=== PATIENT | female | born 1965 | race Caucasian/White ===

== ENCOUNTER 2017-10-09 06:52 | Day surgery (SDC) | payer BC ==
[2017-10-08 17:05] VITALS: BMI 33.6
[2017-10-09] MEDS ORDERED: CEFAZOLIN/Water 2 GM/20 ML SYRINGE ONE (07:41)
[2017-10-09] MEDS ORDERED: Ketorolac Tromethamine 30 MG/ML VIAL ONE (07:41)
[2017-10-09] MEDS ORDERED: Midazolam HCl 2 mg/2 ml Vial ONE (08:49)
[2017-10-09] MEDS ORDERED: Bupivacaine HCl 0.25%/Epi 0.0005/PF 10 ML VIAL FS ONE ×2 (09:10)
[2017-10-09] MEDS ORDERED: Famotidine/PF 20 mg/2ml Vial ONE (09:12)
[2017-10-09] MEDS ORDERED: Fentanyl 100 MCG/2 ML VIAL ONE (09:12)
[2017-10-09] MEDS ORDERED: Albuterol Sulfate HFA (OR ONLY) ONE (09:16)
[2017-10-09] MEDS ORDERED: SUGAMMADEX SODIUM 200 MG/2 ML VIAL ONE (09:16)
--- NOTE | 2017-10-09 10:47 | PDOC.OP ---
Operative Note - Operative Note Operative Note: PROCEDURE: Laparoscopic cholecystectomy SURGEON: Chasity Hdez M.D. DATE OF PROCEDURE: 10/09/2017 PREOPERATIVE DIAGNOSIS: Cholelithiasis and cholecystitis POSTOPERATIVE DIAGNOSIS: Cholelithiasis and cholecystitis HISTORY: Patient with constant right upper quadrant pain since last Friday with intermittent exacerbations of epigastric pain. Gallbladder ultrasound showed a large stone with sludge in the gallbladder. Preoperative LFTs were normal and bile duct was normal caliber. FINDINGS: Very distended gallbladder with a large stone in the neck which was able to be pushed up into the gallbladder. No significant adhesions. PROCEDURE IN DETAIL: After informed consent was obtained and appropriate preoperative antibiotics were administered, the patient was taken to the operating room and placed in the supine position and general endotracheal anesthesia was administered. The stomach was decompressed with an OG tube and the abdomen was prepped and draped in standard sterile fashion. Local anesthesia was infused to the skin and subcutaneous tissues at the umbilical level. A transverse skin incision was made. The fascia was elevated and a Veress needle was placed into the abdominal cavity without difficulty. Opening pressure was less than 5 and carbon dioxide gas easily insufflated to an intra- abdominal pressure of 15, which the patient tolerated well. The Veress needle was withdrawn and a [place] port advanced under direct vision. The abdominal cavity was carefully examined. There was no evidence of Veress needle or of trocar injury. Local anesthesia was infused to the skin and subcutaneous tissues at the epigastric, right upper quadrant, and right lateral abdominal sites and trocars were placed under direct vision of the laparoscope. The gallbladder was very distended and initially was felt that it would need to be aspirated in order to be grasped but eventually the fundus of the gallbladder was able to be grasped and retracted superiorly. The infundibulum was grasped and retracted laterally, displacing a large stone in the neck of the gallbladder superiorly into the gallbladder. The serosa was stripped inferiorly at the level of the neck of the gallbladder exposing the cystic duct and artery which were traced clearly to their insertion in the gallbladder. An enlarged lymph node was incidentally noted. Critical view of safety was obtained and the cystic duct and artery were clipped and divided between clips. The gallbladder was then dissected free of the gallbladder bed using hook electrocautery. Prior to complete removal of the gallbladder from the gallbladder bed, the area of the cystic duct and artery stumps was examined. The clips were in good position completely across these structures and there was no bleeding and no leakage of bile. The gallbladder was then placed into an EndoCatch bag and drawn out through the epigastric incision. The epigastric trocar was replaced and the operative site easily irrigated to clear. There was no significant bleeding or spillage of bile. The epigastric trocar was removed and the fascia closed under direct laparoscopic vision with a 0 Vicryl suture on a GraNee needle in a [id number] manner with excellent technical result. The right upper quadrant and right lateral abdominal trocars were removed and hemostasis verified. Carbon dioxide gas was allowed to desufflate through the umbilical trocar which was then removed. The skin incisions were closed with 4- 0 subcuticular Monocryl sutures and Dermabond dressings were placed. The patient was extubated and taken to the recovery room in good condition. There were no complications. ESTIMATED BLOOD LOSS: Minimal. SPECIMEN : Gallbladder and contents.
[2017-10-09] MEDS ORDERED: Promethazine HCl 25 MG/ML VIAL ONE (10:48)
[2017-10-09] MEDS ORDERED: Morphine 4 MG/ML VIAL ONE (11:38)
[2017-10-09] MEDS ORDERED: HYDROcodone/Acetaminophen 5/325 mg Tablet ONE (12:28)
[2017-10-09] MEDS ORDERED: ePHEDrine/0.9% NaCl/PF SYRINGE 50 mg/10 ml ONE (14:19)
[2017-10-09] MEDS ORDERED: Dexamethasone 20 MG/5 ML VIAL ONE (14:19)
[2017-10-09] MEDS ORDERED: Ondansetron HCl/PF 4 MG/2 ML Vial ONE (14:19)
[2017-10-09] MEDS ORDERED: PROPOFOL 200 MG/20 ML VIAL ONE (14:19)
[2017-10-09] MEDS ORDERED: Lidocaine 1% PF 5 ML VIAL ONE (14:19)
[2017-10-09] MEDS ORDERED: Glycopyrrolate 0.2 MG/ML 5 ML SYRINGE ONE ×2 (14:19)
== END 2017-10-09 12:53 | disposition home or self-care (01) ==
LOC: SDC 06:52
PROVIDERS: ATTEND Surgery
PROC: 0FT44ZZ Resection of Gallbladder, Percutaneous Endoscopic Approach (ICD-10-PCS; principal; 2017-10-09)
DX: K80.10 Calculus of gallbladder with chronic cholecystitis without obstruction (principal); F41.9 Anxiety disorder, unspecified; K21.9 Gastro-esophageal reflux disease without esophagitis; L40.0 Psoriasis vulgaris; Z79.2 Long term (current) use of antibiotics; Z79.899 Other long term (current) drug therapy
CPT/HCPCS: 88304; 96374; 96375; J0131; J1100; J1885; J2001; J2250; J2270; J2405; J2550; J2704; J3010; S0028

== ENCOUNTER 2018-04-27 13:38 | Outpatient (CLI) | payer BC ==
--- NOTE | 2018-04-27 15:21 | RAD ---
RIGHT SHOULDER THREE VIEWS: INDICATIONS: Right shoulder pain. COMPARISON: None. FINDINGS: There is a large focus of calcification seen within the soft tissues overlying the right humeral head , consistent with calcific tendinosis. This measures 3.4 x 3.1 cm in its greatest mediolateral and A P dimensions, respectively. The visualized right lung is clear. 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 POS: [facility]
== END 2018-04-27 13:39 | disposition home or self-care (01) ==
LOC: BICRAD 13:38
PROVIDERS: ATTEND Internal Medicine Rheumatology
DX: M75.101 Unspecified rotator cuff tear or rupture of right shoulder, not specified as traumatic (principal); M75.31 Calcific tendinitis of right shoulder

== ENCOUNTER 2018-06-01 07:42 | Outpatient (CLI) | payer BC ==
--- NOTE | 2018-06-01 10:12 | MRI ---
MRI RIGHT SHOULDER WITHOUT CONTRAST: Date: 06/01/18 HISTORY: M25.511 shoulder pain. M75.101 rotator cuff tear of right shoulder. COMPARISON: Shoulder radiograph dated 04/27/18. FINDINGS: Biceps tendon: Intact. Labrum: Mild free edge fraying superior labrum. Rotator Cuff: There is a 50% thickness bursal surface tear of the supraspinatus tendon from the footprint. Infraspi natus tendon is intact. Subscapularis is intact. There is a large volume calcific tendinosis of the supraspinatus tendon torn fibers measuring 1.7 cm AP x approximately 4.0 cm in transverse dimension. There is associated edema within the supraspinatus muscle. There is also partial tearing of the myotendinous junction of the posterior one-half fibers, of which these fibers are retracted to the level of the spinoglenoid notch. This is an internal type delamination tear. No significant atrophy of the supraspinatus muscle. The infraspinatus and subscapularis and teres min or muscles are without atrophy. The deltoid is without significant atrophy. Moderate subacromial/subdeltoid effusion. Type III acromion with some mass effect upon the myotendino us junction of the supraspinatus. IMPRESSION: 1. 50% thickness bursal surface tear of the entire supraspinatus tendon from the footprint. 2. There is a myotendinous junction internal delamination type tear of the posterior 30% fibers of t he supraspinatus tendon retracted to the level of the supraglenoid notch. At the torn fibers extendin g from the footprint for a length of 4.0 cm is a large volume calcific tendinosis. 3. Type III acromion with narrowing of the subacromial space and moderate subacromial subdeltoid effu becca. POS: [facility]
== END 2018-06-01 07:43 | disposition home or self-care (01) ==
LOC: MRI 07:42
PROVIDERS: ATTEND Internal Medicine Rheumatology
DX: M75.101 Unspecified rotator cuff tear or rupture of right shoulder, not specified as traumatic (principal); M25.511 Pain in right shoulder; M25.411 Effusion, right shoulder; M25.811 Other specified joint disorders, right shoulder

== ENCOUNTER 2021-12-29 18:15 | Inpatient (IN) | payer OTHER ==
[~2021-12-29 18:15] MED LIST: Iopamidol-370 76% 500 ML 1 ML ONE
[2021-12-29] MEDS ORDERED: CEFAZOLIN 1 GM VIAL ONE (18:25)
[2021-12-29] MEDS ORDERED: Boostrix 0.5 ML (Tdap) VIAL (>/=7 yrs of age) ONE (18:25)
[2021-12-29 18:30] LABS: Hemoglobin 13.2 g/dL (12.0-16.0); Mean Corpuscular HGB CONC 31.4 g/dL (32.0-36.0); Mean Corpuscular Hemoglobin 32.5 pg (27.0-31.0); Mean Platelet Volume 6.8 fL (7.4-10.4); Platelet Count 271 thou/uL (130-400); RBC Distribution Width 12.6 % (11.5-14.5); Red Blood Cell (RBC) Count 4.06 mill/uL (4.20-5.40); White Blood Cell (WBC) Count 28.6 thou/uL (4.8-10.8)
[2021-12-29 18:39] LABS: BHCG - Serum Negative (NEGATIVE); Pregs Control Background? CLEAR/WHITE (CLR/WHITE); Pregs Control Bar Appear? YES (CONTROL BAR)
[2021-12-29 18:44] LABS: Band 23 % (5-11); Lymphocytes 13 % (21-51); MDiff Complete? YES; Macrocytosis SLIGHT = 6-15 cells (100X) (0-5/hpf); Monocytes 3 % (0-10); Neutrophil 61 % (42-75); Platelet Morphology Comment Appears Adequate
[2021-12-29 18:48] LABS: ALT (SGPT) 190 U/L (8-55); AST (SGOT) 201 U/L (5-34); Albumin 3.3 g/dL (3.5-5.0); Alcohol 129 mg/dL (Less than 10); Alkaline Phosphatase 80 U/L (40-110); Anion Gap 19 mmol/L (10-20); BUN (Urea Nitrogen) 11 mg/dL (9.8-20.1); Bilirubin, Total 0.2 mg/dL (0.2-1.2); Calc. Creatinine Clearance 0 mL/min (70-130); Calcium 8.2 mg/dL (7.8-10.44); Carbon Dioxide 13 mmol/L (22-29); Chloride 109 mmol/L (98-107); Estimated GFR 76; Globulin 2.5 g/dL (2.4-3.5); Glucose 107 mg/dL (70-105); Potassium 4.1 mmol/L (3.5-5.1); Protein, Total 5.8 g/dL (6.0-8.3); Sodium 137 mmol/L (136-145)
[2021-12-29] MEDS ORDERED: Fentanyl 100 MCG/2 ML VIAL ONE ×2 (18:51→22:06)
[2021-12-29 18:53] LABS: Bilirubin Negative (Negative); Blood, Urine 3+ (Negative); Clarity Clear (Clear); Glucose, Urine (Dipstick) Normal (Negative); Ketone, Urine Negative (Negative); Leukocyte Negative Leu/uL (Negative); Nitrite Negative (Negative); Protein, Urine (Dipstick) 50 mg/dL (Neg-Trace); Specific Gravity, Urine 1.007 (1.002-1.036); Squamous Epithelial 0-3 HPF (0-3); Urobilinogen Normal mg/dL (Less than 2); pH, Urine 6.5 (5.0-9.0)
[2021-12-29 19:02] LABS: Bacteria/HPF Rare-Few HPF (None Seen)
[2021-12-29] MEDS ORDERED: HumaLOG 300 UNITS/3 ML VIAL SC PRN (19:10)
[2021-12-29] MEDS ORDERED: Dextrose 5% in Water 1,000 ML IV PRN (19:10)
[2021-12-29] MEDS ORDERED: Ondansetron ODT 4 MG TAB PO PRN (19:10)
[2021-12-29] MEDS ORDERED: Ondansetron PF 4 MG/2 ML Vial IVP PRN (19:10)
[2021-12-29] MEDS ORDERED: Dextrose 50% Abboject 50 ML SYRINGE SLOW IVP PRN (19:10)
[2021-12-29] MEDS ORDERED: Morphine 2 MG/ML VIAL SLOW IVP PRN (19:19)
[2021-12-29] MEDS ORDERED: traMADol HCl 50 MG TAB PO PRN (19:20)
[2021-12-29 19:22] LABS: INR-International Normal Ratio 1.2; PTT 26.9 sec (22.9-36.1); Prothrombin Time 15.4 sec (12.0-14.7)
[2021-12-29] MEDS ORDERED: Calcium Chloride 1 GM/10 ML Abboject SYRINGE ONE (19:25)
[2021-12-29] MEDS ORDERED: Bacitracin Zinc Ointment 30 gm TUBE ONE (19:36)
[2021-12-29] MEDS ORDERED: Neomycin-Polymyxin 1 ML AMP ONE ×2 (19:37→21:18)
[2021-12-29 19:54] LABS: Acetaminophen Less than 10.0 mcg/mL (10.0-30.0); Alcohol 129 mg/dL (Less than 10); Salicylate Less than 8.0 mg/dL (15.0-30.0)
[2021-12-29] MEDS ORDERED: fentaNYL Citrate/PF 100 MCG/2 ML SYRINGE ONE (20:00)
[2021-12-29] MEDS ORDERED: Ondansetron PF 4 MG/2 ML Vial ONE (20:16)
[2021-12-29] MEDS ORDERED: Glycopyrrolate 0.2 MG/ML 5 ML SYRINGE ONE (20:16)
[2021-12-29] MEDS ORDERED: Metoclopramide HCl 10 MG/2 ML VIAL ONE (20:16)
[2021-12-29] MEDS ORDERED: ePHEDrine 50 MG/ML VIAL ONE (20:16)
[2021-12-29] MEDS ORDERED: Rocuronium Bromide 10 MG/ML (10ML VIAL) ONE (20:16)
[2021-12-29] MEDS ORDERED: Phenylephrine 10 MG/ML VIAL ONE (20:16)
[2021-12-29] MEDS ORDERED: Dexamethasone 20 MG/5 ML VIAL ONE (20:16)
[2021-12-29] MEDS ORDERED: Succinylcholine 200 MG/10 ml SYRINGE FS ONE (20:16)
[2021-12-29] MEDS ORDERED: PROPOFOL 200 MG/20 ML VIAL ONE (20:16)
[2021-12-29] MEDS ORDERED: NEOSTIGMINE 3 MG/3 ML SYR 3 MG/3 ML SYRINGE ONE (20:16)
[2021-12-29] MEDS ORDERED: TETANUS, DIPHTHERIA TOX,ADULT (TDVAX) 0.5 ML VIAL IM ONE (21:00)
[2021-12-29] MEDS ORDERED: HYDROmorphone 2 MG/ML VIAL ONE (21:42)
[2021-12-29] MEDS ORDERED: Promethazine HCl 25 MG/ML VIAL IM PRN (22:26)
[2021-12-29] MEDS ORDERED: PACU-Morphine 4MG/ML VIAL SLOW IVP PRN (22:26)
[2021-12-29] MEDS ORDERED: Morphine Sulfate 2 MG/ML SYRINGE SLOW IVP PRN (22:26)
[2021-12-29] MEDS ORDERED: Ondansetron HCl/PF 4 MG/2 ML Vial IVP PRN (22:26)
[2021-12-29] MEDS ORDERED: HYDROmorphone 2 MG/ML VIAL SLOW IVP PRN (22:26)
[2021-12-29] MEDS ORDERED: Promethazine HCl 25 MG/ML VIAL IVPB PRN (22:26)
[2021-12-29] MEDS ORDERED: Ketorolac Tromethamine 30 MG/ML VIAL ONE (22:48)
[2021-12-30] MEDS: Sodium Chloride 0.9% 1,000 ML IV SCH ×2 (00:15→01:24)
[2021-12-30 00:20] LABS: Hemoglobin 13.8 g/dL (12.0-16.0)
[2021-12-30 00:25] VITALS: BMI 36.1
[2021-12-30 00:35] LABS: Bacteria/HPF None Seen HPF (None Seen); Bilirubin Negative (Negative); Blood, Urine 3+ (Negative); Clarity Clear (Clear); Glucose, Urine (Dipstick) Normal (Negative); Ketone, Urine Negative (Negative); Leukocyte Negative Leu/uL (Negative); Nitrite Negative (Negative); Protein, Urine (Dipstick) Negative (Neg-Trace); Specific Gravity, Urine 1.023 (1.002-1.036); Squamous Epithelial None Seen HPF (0-3); Urobilinogen Normal mg/dL (Less than 2); pH, Urine 5.5 (5.0-9.0)
[2021-12-30 00:37] LABS: Urine Culture Reflex Yes Yes
[2021-12-30 00:39] LABS: Amphetamine Not Detected (NotDetected); Barbiturates Screen Not Detected (NotDetected); Benzodiazepine Screen Not Detected (NotDetected); Cocaine Metabolite Screen Not Detected (NotDetected); Methadone Not Detected (NotDetected); Methamphetamine Detected (NotDetected); Opiate Screen Detected (NotDetected); Oxycodone Screen Not Detected (NotDetected); Phencyclidine (PCP) Not Detected (NotDetected); THC/Cannabinoid Screen Not Detected (NotDetected); Tricyclic Screen Not Detected (NotDetected)
[2021-12-30] MEDS: Acetaminophen 325 MG TAB PO SCH ×3 (00:57→07:46)
[2021-12-30] MEDS: traMADol HCl 50 MG TAB PO SCH ×6 (01:00→23:45)
[2021-12-30] MEDS: Famotidine 20 MG TAB PO SCH ×3 (01:04→21:03)
[2021-12-30] MEDS: Ibuprofen 200 MG TAB PO SCH ×4 (01:04→16:33)
[2021-12-30] MEDS: Morphine 4 MG/ML VIAL SLOW IVP PRN ×11 (02:08→23:44)
[2021-12-30 04:45] LABS: #Lymphocytes 0.8 thou/uL (1.20-3.40); #Monocytes 0.6 thou/uL (0.11-0.59); #Neutrophils 13.8 thou/uL (1.40-6.50); %Eosinophils 0.2 % (0.0-10.0); %Lymphocytes 5.1 % (21.0-51.0); %Neutrophils 90.8 % (42.0-75.0); Hemoglobin 13.8 g/dL (12.0-16.0); Mean Corpuscular HGB CONC 32.5 g/dL (32.0-36.0); Mean Corpuscular Hemoglobin 30.9 pg (27.0-31.0); Mean Platelet Volume 7.1 fL (7.4-10.4); Platelet Count 194 thou/uL (130-400); RBC Distribution Width 14.9 % (11.5-14.5); Red Blood Cell (RBC) Count 4.46 mill/uL (4.20-5.40); White Blood Cell (WBC) Count 15.2 thou/uL (4.8-10.8)
[2021-12-30] MEDS: CEFAZOLIN 2 GM in Sodium Chloride 0.9% 100 ML IVPB SCH ×2 (04:59→14:28)
[2021-12-30 05:06] LABS: Anion Gap 13 mmol/L (10-20); BUN (Urea Nitrogen) 12 mg/dL (9.8-20.1); Calc. Creatinine Clearance 124 mL/min (70-130); Calcium 9.7 mg/dL (7.8-10.44); Carbon Dioxide 22 mmol/L (22-29); Chloride 107 mmol/L (98-107); Estimated GFR 97; Glucose 151 mg/dL (70-105); Magnesium 1.6 mg/dL (1.6-2.6); Phosphorus 4.1 mg/dL (2.3-4.7); Potassium 3.8 mmol/L (3.5-5.1); Sodium 138 mmol/L (136-145)
[2021-12-30] MEDS: Acetaminophen 500 MG TAB PO SCH ×3 (10:54→23:47)
[2021-12-30] MEDS: Gabapentin 300 MG CAP PO SCH ×2 (14:27→21:01)
[2021-12-31] MEDS: Ibuprofen 200 MG TAB PO SCH ×4 (02:50→21:06)
[2021-12-31] MEDS: Morphine 4 MG/ML VIAL SLOW IVP PRN ×3 (02:51→07:16)
[2021-12-31] MEDS: Acetaminophen 500 MG TAB PO SCH ×4 (05:07→23:35)
[2021-12-31] MEDS: traMADol HCl 50 MG TAB PO SCH ×2 (05:08→11:45)
[2021-12-31 05:48] LABS: #Lymphocytes 2.3 thou/uL (1.20-3.40); #Monocytes 0.6 thou/uL (0.11-0.59); #Neutrophils 8.8 thou/uL (1.40-6.50); %Basophils 0.1 % (0.0-1.0); %Eosinophils 0.2 % (0.0-10.0); %Lymphocytes 19.8 % (21.0-51.0); %Monocytes 5.1 % (0.0-10.0); %Neutrophils 74.7 % (42.0-75.0); Hemoglobin 12.5 g/dL (12.0-16.0); Mean Corpuscular HGB CONC 31.6 g/dL (32.0-36.0); Mean Corpuscular Hemoglobin 30.9 pg (27.0-31.0); Mean Corpuscular Volume 97.8 fL (78.0-98.0); Mean Platelet Volume 7.2 fL (7.4-10.4); Platelet Count 174 thou/uL (130-400); RBC Distribution Width 14.5 % (11.5-14.5); Red Blood Cell (RBC) Count 4.03 mill/uL (4.20-5.40); White Blood Cell (WBC) Count 11.8 thou/uL (4.8-10.8)
[2021-12-31 06:07] LABS: Anion Gap 11 mmol/L (10-20); BUN (Urea Nitrogen) 16 mg/dL (9.8-20.1); Calc. Creatinine Clearance 116 mL/min (70-130); Calcium 8.7 mg/dL (7.8-10.44); Carbon Dioxide 24 mmol/L (22-29); Chloride 103 mmol/L (98-107); Estimated GFR 89; Glucose 113 mg/dL (70-105); Magnesium 1.8 mg/dL (1.6-2.6); Sodium 134 mmol/L (136-145)
[2021-12-31] MEDS ORDERED: Enoxaparin Sodium 40 MG/0.4 ML SYRINGE SC SCH (09:00)
[2021-12-31] MEDS: Famotidine 20 MG TAB PO SCH (09:39)
[2021-12-31] MEDS: Gabapentin 300 MG CAP PO SCH ×3 (09:40→21:07)
[2021-12-31] MEDS ORDERED: diphenhydrAMINE 25 MG CAP PO PRN (11:00)
[2021-12-31] MEDS ORDERED: Communication Order-Pharmacy FS SCH (11:00)
[2021-12-31] MEDS ORDERED: Zolpidem Tartrate 5 MG TAB PO PRN (11:00)
[2021-12-31] MEDS ORDERED: HYDROmorphone 10 mg/100 ml CADD IVPB PRN (11:00)
[2021-12-31] MEDS ORDERED: diphenhydrAMINE 50 MG/ML VIAL IVP PRN (11:00)
[2021-12-31] MEDS ORDERED: Naloxone HCl 0.4 mg/ml Vial IV PRN (11:00)
[2021-12-31] MEDS ORDERED: Ondansetron PF 4 MG/2 ML Vial IVP PRN (11:00)
[2021-12-31] MEDS ORDERED: Promethazine HCl 25 MG/ML VIAL IM PRN ×3 (11:00→15:13)
[2021-12-31] MEDS ORDERED: diphenhydrAMINE 50 MG/ML VIAL IM PRN (11:00)
[2021-12-31] MEDS ORDERED: fentaNYL Citrate/PF 100 MCG/2 ML SYRINGE ONE ×2 (11:36→15:28)
[2021-12-31] MEDS ORDERED: SUGAMMADEX SODIUM 200 MG/2 ML VIAL ONE (11:36)
[2021-12-31] MEDS ORDERED: Vancomycin 1.5 GRAM/300 ML BAG 1.5 GM in Premix Bag 1 BAG IVPB SCH (12:00)
[2021-12-31] MEDS ORDERED: ePHEDrine 50 MG/ML VIAL ONE (12:20)
[2021-12-31] MEDS ORDERED: PROPOFOL 200 MG/20 ML VIAL ONE (12:20)
[2021-12-31] MEDS ORDERED: Rocuronium Bromide 10 MG/ML (10ML VIAL) ONE (12:20)
[2021-12-31] MEDS ORDERED: Phenylephrine 10 MG/ML VIAL ONE ×2 (12:20→14:21)
[2021-12-31] MEDS ORDERED: Dexamethasone 20 MG/5 ML VIAL ONE (12:20)
[2021-12-31] MEDS ORDERED: Ondansetron PF 4 MG/2 ML Vial ONE (12:20)
[2021-12-31] MEDS ORDERED: Ketorolac Tromethamine 30 MG/ML VIAL ONE (12:20)
[2021-12-31] MEDS ORDERED: CEFAZOLIN 2 GM VIAL ONE (12:29)
[2021-12-31] MEDS ORDERED: Vancomycin (BATCH) 1.5 GRAM/300 ML BAG ONE (12:29)
[2021-12-31] MEDS ORDERED: Sodium Chloride 0.9% 0 ML ONE (12:29)
[2021-12-31 13:52] LABS: SARS-CoV-2 NAA Rapid Test Not Detected (NotDetected)
[2021-12-31] MEDS: Ipratropium Bromide 2.5 ml Neb NEB SCH ×3 (14:16→21:54)
[2021-12-31] MEDS ORDERED: CEFAZOLIN 2 GM in Sodium Chloride 0.9% 100 ML IVPB SCH (15:00)
[2021-12-31] MEDS ORDERED: Promethazine HCl 25 MG/ML VIAL IVPB PRN ×2 (15:12→15:13)
[2021-12-31] MEDS ORDERED: Ondansetron HCl/PF 4 MG/2 ML Vial IVP PRN ×2 (15:12→15:13)
[2021-12-31] MEDS ORDERED: HYDROmorphone 2 MG/ML VIAL SLOW IVP PRN (15:12)
[2021-12-31] MEDS ORDERED: HYDROmorphone 0.5 MG/0.5 ML SYRINGE ONE ×2 (15:58→16:10)
[2021-12-31] MEDS ORDERED: Meperidine HCl/PF 25 MG/ML VIAL ONE (16:02)
[2021-12-31] MEDS: CEFAZOLIN 2 GM in Sodium Chloride 0.9% 100 ML IVPB SCH (21:06)
[2022-01-01] MEDS: Ibuprofen 200 MG TAB PO SCH ×4 (02:14→21:20)
[2022-01-01] MEDS: Ipratropium Bromide 2.5 ml Neb NEB SCH ×7 (03:44→22:29)
[2022-01-01] MEDS: CEFAZOLIN 2 GM in Sodium Chloride 0.9% 100 ML IVPB SCH ×3 (03:48→21:20)
[2022-01-01] MEDS: Acetaminophen 500 MG TAB PO SCH ×2 (04:32→10:09)
[2022-01-01 06:00] LABS: #Lymphocytes 1.3 thou/uL (1.20-3.40); #Monocytes 0.6 thou/uL (0.11-0.59); #Neutrophils 9.6 thou/uL (1.40-6.50); %Lymphocytes 11.1 % (21.0-51.0); %Neutrophils 83.8 % (42.0-75.0); Hemoglobin 11.2 g/dL (12.0-16.0); Mean Corpuscular HGB CONC 32.2 g/dL (32.0-36.0); Mean Corpuscular Hemoglobin 30.9 pg (27.0-31.0); Mean Platelet Volume 7.2 fL (7.4-10.4); Platelet Count 170 thou/uL (130-400); Red Blood Cell (RBC) Count 3.61 mill/uL (4.20-5.40); White Blood Cell (WBC) Count 11.4 thou/uL (4.8-10.8)
[2022-01-01 06:32] LABS: ALT (SGPT) 64 U/L (8-55); AST (SGOT) 65 U/L (5-34); Alkaline Phosphatase 62 U/L (40-110); Anion Gap 10 mmol/L (10-20); BUN (Urea Nitrogen) 11 mg/dL (9.8-20.1); Bilirubin, Total 0.5 mg/dL (0.2-1.2); CK (CPK) 1310 U/L (29-168); Calc. Creatinine Clearance 158 mL/min (70-130); Calcium 8.4 mg/dL (7.8-10.44); Carbon Dioxide 25 mmol/L (22-29); Chloride 105 mmol/L (98-107); Estimated GFR 104; Globulin 2.5 g/dL (2.4-3.5); Glucose 112 mg/dL (70-105); Magnesium 1.9 mg/dL (1.6-2.6); Phosphorus 2.2 mg/dL (2.3-4.7); Potassium 4.2 mmol/L (3.5-5.1); Protein, Total 5.5 g/dL (6.0-8.3); Sodium 136 mmol/L (136-145)
[2022-01-01] MEDS ORDERED: Sodium Chloride 0.9% 1,000 ML IV SCH (06:45)
[2022-01-01] MEDS: Gabapentin 300 MG CAP PO SCH ×3 (08:21→21:21)
[2022-01-01] MEDS ORDERED: Enoxaparin Sodium 40 MG/0.4 ML SYRINGE SC SCH (09:00)
[2022-01-01] MEDS: Enoxaparin Sodium 40 MG/0.4 ML SYRINGE SC SCH ×2 (09:09→21:22)
[2022-01-01] MEDS ORDERED: traMADol HCl 50 MG TAB PO SCH (11:00)
[2022-01-01] MEDS: Acetaminophen 325 MG TAB PO SCH ×2 (11:53→17:21)
[2022-01-01] MEDS: Acetaminophen/Codeine 30-300mg Tablet PO SCH ×2 (12:00→17:09)
[2022-01-01] MEDS: Cyclobenzaprine 10 MG TAB PO PRN (21:21)
[2022-01-02] MEDS: Acetaminophen 325 MG TAB PO SCH ×2 (01:35→05:42)
[2022-01-02] MEDS: Acetaminophen/Codeine 30-300mg Tablet PO SCH ×5 (01:35→23:36)
[2022-01-02] MEDS: Ipratropium Bromide 2.5 ml Neb NEB SCH ×6 (02:44→22:29)
[2022-01-02] MEDS: Ibuprofen 200 MG TAB PO SCH ×2 (03:59→09:20)
[2022-01-02] MEDS: CEFAZOLIN 2 GM in Sodium Chloride 0.9% 100 ML IVPB SCH ×3 (04:05→19:48)
[2022-01-02 06:23] LABS: #Eosinphils 0.1 thou/uL (0.0-0.7); #Lymphocytes 3.2 thou/uL (1.20-3.40); #Monocytes 0.6 thou/uL (0.11-0.59); #Neutrophils 6.8 thou/uL (1.40-6.50); %Basophils 0.1 % (0.0-1.0); %Eosinophils 1.1 % (0.0-10.0); %Lymphocytes 30.2 % (21.0-51.0); %Monocytes 5.2 % (0.0-10.0); %Neutrophils 63.5 % (42.0-75.0); Hemoglobin 10.8 g/dL (12.0-16.0); Mean Corpuscular HGB CONC 32.4 g/dL (32.0-36.0); Mean Corpuscular Hemoglobin 31.3 pg (27.0-31.0); Mean Corpuscular Volume 96.4 fL (78.0-98.0); Mean Platelet Volume 7.4 fL (7.4-10.4); Platelet Count 190 thou/uL (130-400); RBC Distribution Width 13.8 % (11.5-14.5); Red Blood Cell (RBC) Count 3.47 mill/uL (4.20-5.40); White Blood Cell (WBC) Count 10.7 thou/uL (4.8-10.8)
[2022-01-02 07:31] LABS: Anion Gap 10 mmol/L (10-20); BUN (Urea Nitrogen) 10 mg/dL (9.8-20.1); Calc. Creatinine Clearance 159 mL/min (70-130); Calcium 8.5 mg/dL (7.8-10.44); Carbon Dioxide 27 mmol/L (22-29); Chloride 108 mmol/L (98-107); Estimated GFR 104; Glucose 96 mg/dL (70-105); Magnesium 1.8 mg/dL (1.6-2.6); Phosphorus 1.4 mg/dL (2.3-4.7); Potassium 3.8 mmol/L (3.5-5.1); Sodium 141 mmol/L (136-145)
[2022-01-02] MEDS ORDERED: Magnesium 2 GM/50 ML(in water) 2 GM in Premix Bag 1 BAG IVPB SCH (09:00)
[2022-01-02] MEDS ORDERED: FLU VACC QS2022-23(6MOS UP)/PF 60 MCG/0.5 ML SYRINGE IM ONE (09:00)
[2022-01-02] MEDS: Senokot S 8.6-50 MG TAB PO SCH ×2 (09:21→19:48)
[2022-01-02] MEDS: Gabapentin 300 MG CAP PO SCH ×3 (09:21→19:49)
[2022-01-02] MEDS: Polyethylene Glycol 3350 17 GM Packet PO SCH (09:23)
[2022-01-02] MEDS: Enoxaparin Sodium 40 MG/0.4 ML SYRINGE SC SCH ×2 (09:23→19:50)
[2022-01-02] MEDS ORDERED: Sodium Phosphate 30 MMOL in Sodium Chloride 0.9% 250 ML 250 ML IVPB SCH (10:00)
[2022-01-02] MEDS ORDERED: Sodium Chloride 0.65% Nasal 44 ML BOT EA NARE PRN (10:45)
[2022-01-02] MEDS: Cyclobenzaprine 10 MG TAB PO PRN ×2 (11:03→19:48)
[2022-01-02] MEDS: Ketorolac Tromethamine 30 MG/ML VIAL IVP SCH ×3 (11:04→23:32)
[2022-01-02] MEDS: traMADol HCl 50 MG TAB PO PRN ×3 (14:42→20:40)
[2022-01-03] MEDS: Ipratropium Bromide 2.5 ml Neb NEB SCH ×4 (01:46→18:26)
[2022-01-03] MEDS: Cyclobenzaprine 10 MG TAB PO PRN ×3 (03:50→21:00)
[2022-01-03] MEDS: traMADol HCl 50 MG TAB PO PRN ×3 (03:50→21:01)
[2022-01-03] MEDS: Acetaminophen/Codeine 30-300mg Tablet PO SCH ×4 (06:25→23:20)
[2022-01-03] MEDS: Ketorolac Tromethamine 30 MG/ML VIAL IVP SCH ×4 (06:25→23:20)
[2022-01-03 08:09] LABS: Anion Gap 9 mmol/L (10-20); BUN (Urea Nitrogen) 11 mg/dL (9.8-20.1); Calc. Creatinine Clearance 176 mL/min (70-130); Calcium 8.2 mg/dL (7.8-10.44); Carbon Dioxide 29 mmol/L (22-29); Chloride 105 mmol/L (98-107); Estimated GFR 106; Glucose 106 mg/dL (70-105); Magnesium 1.8 mg/dL (1.6-2.6); Phosphorus 3.2 mg/dL (2.3-4.7); Potassium 3.7 mmol/L (3.5-5.1); Sodium 139 mmol/L (136-145)
[2022-01-03] MEDS: Polyethylene Glycol 3350 17 GM Packet PO SCH (08:26)
[2022-01-03] MEDS: Enoxaparin Sodium 30 MG/0.3 ML SYRINGE SC SCH ×2 (08:26→21:00)
[2022-01-03] MEDS: Senokot S 8.6-50 MG TAB PO SCH ×2 (08:26→21:00)
[2022-01-03] MEDS: Gabapentin 300 MG CAP PO SCH ×3 (08:27→21:00)
[2022-01-03] MEDS ORDERED: ALPRAZolam 0.5 MG TAB PO SCH (10:30)
[2022-01-03] MEDS ORDERED: Fentanyl 100 MCG/2 ML VIAL SLOW IVP SCH (10:30)
[2022-01-03] MEDS ORDERED: Communication Order-Pharmacy FS SCH (11:45)
[2022-01-03] MEDS ORDERED: Piperacillin/Tazobactam 4.5 GM in Sodium Chloride 0.9% 100 ML IVPB SCH (11:45)
[2022-01-03] MEDS ORDERED: Magnesium 2 GM/50 ML(in water) 2 GM in Premix Bag 1 BAG IVPB SCH (12:45)
[2022-01-03] MEDS ORDERED: Piperacillin/Tazobactam 3.375 GM in Sodium Chloride 0.9% 100 ML IVPB SCH (14:00)
[2022-01-03] MEDS: metroNIDAZOLE 500 MG in Premix Bag 1 BAG IVPB SCH (15:48)
[2022-01-03] MEDS: Piperacillin/Tazobactam 3.375 GM in Sodium Chloride 0.9% 100 ML IVPB SCH (21:03)
[2022-01-04] MEDS: metroNIDAZOLE 500 MG in Premix Bag 1 BAG IVPB SCH ×3 (01:00→15:20)
[2022-01-04] MEDS: traMADol HCl 50 MG TAB PO PRN ×2 (04:34→14:12)
[2022-01-04] MEDS: Cyclobenzaprine 10 MG TAB PO PRN ×2 (04:34→14:12)
[2022-01-04] MEDS: Piperacillin/Tazobactam 3.375 GM in Sodium Chloride 0.9% 100 ML IVPB SCH ×3 (05:10→21:57)
[2022-01-04] MEDS: Acetaminophen/Codeine 30-300mg Tablet PO SCH ×4 (06:10→23:13)
[2022-01-04] MEDS: Ketorolac Tromethamine 30 MG/ML VIAL IVP SCH ×2 (06:11→11:54)
[2022-01-04] MEDS: Ipratropium Bromide 2.5 ml Neb NEB SCH ×3 (06:58→19:22)
[2022-01-04] MEDS: Enoxaparin Sodium 30 MG/0.3 ML SYRINGE SC SCH ×2 (09:11→20:16)
[2022-01-04] MEDS: Gabapentin 300 MG CAP PO SCH ×3 (09:11→20:16)
[2022-01-04] MEDS: Senokot S 8.6-50 MG TAB PO SCH ×2 (09:11→20:17)
[2022-01-04] MEDS: Polyethylene Glycol 3350 17 GM Packet PO SCH (09:12)
[2022-01-04] MEDS ORDERED: Magnesium Citrate 300 ML BOT PO PRN (12:43)
[2022-01-04] MEDS ORDERED: Fleet Enema 133 ML BOT PR SCH (12:45)
[2022-01-04] MEDS: Silver Sulfadiazine 50 GM TUBE TOP SCH (13:32)
[2022-01-04] MEDS: tiZANidine HCl 4 MG TAB PO SCH ×2 (17:30→20:17)
[2022-01-04] MEDS: Ibuprofen 600 MG TAB PO SCH (21:57)
[2022-01-05] MEDS: tiZANidine HCl 4 MG TAB PO SCH ×5 (01:03→17:19)
[2022-01-05] MEDS: metroNIDAZOLE 500 MG in Premix Bag 1 BAG IVPB SCH ×3 (02:12→16:31)
[2022-01-05 03:44] VITALS: TEMP 98.3
[2022-01-05] MEDS: Ibuprofen 600 MG TAB PO SCH ×2 (06:01→14:05)
[2022-01-05] MEDS: Piperacillin/Tazobactam 3.375 GM in Sodium Chloride 0.9% 100 ML IVPB SCH ×2 (06:01→15:22)
[2022-01-05] MEDS: Acetaminophen/Codeine 30-300mg Tablet PO SCH ×3 (06:02→17:20)
[2022-01-05] MEDS: Ipratropium Bromide 2.5 ml Neb NEB SCH ×2 (06:47→14:42)
[2022-01-05] MEDS: Enoxaparin Sodium 30 MG/0.3 ML SYRINGE SC SCH (09:03)
[2022-01-05] MEDS: Gabapentin 300 MG CAP PO SCH ×2 (09:03→14:06)
[2022-01-05] MEDS: Senokot S 8.6-50 MG TAB PO SCH (09:04)
[2022-01-05] MEDS: Silver Sulfadiazine 50 GM TUBE TOP SCH (09:04)
[2022-01-05] MEDS: Polyethylene Glycol 3350 17 GM Packet PO SCH (09:04)
[2022-01-05] MEDS: traMADol HCl 50 MG TAB PO PRN (10:18)
[2022-01-05] MEDS: Cephalexin 250 MG CAP PO SCH ×2 (11:31→17:19)
[2022-01-05 17:13] VITALS: BP 105/67
== END 2022-01-05 17:35 | DRG 957 ==
LOC: ERS 18:15 → SDC/OP 21:49 → CCU 23:22 → SJJU 12-31 22:33
PROVIDERS: ADMIT Physician Assistant Medical; ATTEND Surgery
PROC: 0SSC0ZZ Reposition Right Knee Joint, Open Approach (ICD-10-PCS; principal; 2021-12-29)
PROC: 0S9C0ZZ Drainage of Right Knee Joint, Open Approach (ICD-10-PCS; 2021-12-29)
PROC: 0JQN0ZZ Repair Right Lower Leg Subcutaneous Tissue and Fascia, Open Approach (ICD-10-PCS; 2021-12-29)
PROC: 0PSDXZZ Reposition Left Humeral Head, External Approach (ICD-10-PCS; 2021-12-29)
PROC: 30233N1 Transfusion of Nonautologous Red Blood Cells into Peripheral Vein, Percutaneous Approach (ICD-10-PCS; 2021-12-29)
PROC: 30233L1 Transfusion of Nonautologous Fresh Plasma into Peripheral Vein, Percutaneous Approach (ICD-10-PCS; 2021-12-29)
PROC: 0HQ1XZZ Repair Face Skin, External Approach (ICD-10-PCS; 2021-12-29)
PROC: 0MQN0ZZ Repair Right Knee Bursa and Ligament, Open Approach (ICD-10-PCS; 2021-12-31)
PROC: 0SS Lower Joints, Reposition (ICD-10-PCS; 2021-12-31)
DX: S83.104A Unspecified dislocation of right knee, initial encounter (principal); S32.491A Other specified fracture of right acetabulum, initial encounter for closed fracture; T79.4XXA Traumatic shock, initial encounter; T79.6XXA Traumatic ischemia of muscle, initial encounter; S82.141A Displaced bicondylar fracture of right tibia, initial encounter for closed fracture; S22.31XA Fracture of one rib, right side, initial encounter for closed fracture; S32.82XA Multiple fractures of pelvis without disruption of pelvic ring, initial encounter for closed fracture; S42.202A Unspecified fracture of upper end of left humerus, initial encounter for closed fracture; S32.591A Other specified fracture of right pubis, initial encounter for closed fracture; S32.039A Unspecified fracture of third lumbar vertebra, initial encounter for closed fracture; S32.049A Unspecified fracture of fourth lumbar vertebra, initial encounter for closed fracture; S32.059A Unspecified fracture of fifth lumbar vertebra, initial encounter for closed fracture; E87.20 Acidosis, unspecified; Z20.822 Contact with and (suspected) exposure to COVID-19; F10.129 Alcohol abuse with intoxication, unspecified; Y90.6 Blood alcohol level of 120-199 mg/100 ml; K21.9 Gastro-esophageal reflux disease without esophagitis; F41.9 Anxiety disorder, unspecified; S01.112A Laceration without foreign body of left eyelid and periocular area, initial encounter; S83.8X1A Sprain of other specified parts of right knee, initial encounter; S43.004A Unspecified dislocation of right shoulder joint, initial encounter; S92.351A Displaced fracture of fifth metatarsal bone, right foot, initial encounter for closed fracture; Z98.51 Tubal ligation status; V49.9XXA Car occupant (driver) (passenger) injured in unspecified traffic accident, initial encounter; Y92.410 Unspecified street and highway as the place of occurrence of the external cause; Z90.49 Acquired absence of other specified parts of digestive tract
CPT/HCPCS: 36415; 36416; 36430; 51702; 70450; 71045; 71260; 72125; 72170; 74177; 76000; 80048; 80053; 80306; 80307; 81001; 81003; 81015; 82550; 83605; 83735; 84100; 84703; 85025; 85610; 85730; 86850; 86900; 86901; 87086; 90471; 90715; 93005; 94640; 94760; 96374; 96375; 97139; C1713; C1776; G0390; J0690; J1100; J1170; J1650; J1885; J1956; J2175; J2270; J2370; J2405; J2543; J2704; J2765; J3010; J3370; J3475; J3490; J7050; L1830; P9016; P9048; Q9967; U0002

== ENCOUNTER 2022-01-28 10:42 | Day surgery (SDC) | payer OTHER ==
[2022-01-25 11:26] VITALS: BMI 31.8
[2022-01-28] MEDS ORDERED: Lidocaine 1% (PF) 30 ML VIAL ONE (12:03)
[2022-01-28] MEDS ORDERED: CEFAZOLIN 2 GM VIAL ONE (12:20)
[2022-01-28] MEDS ORDERED: Sodium Chloride 0.9% 100 ML ONE (12:20)
[2022-01-28] MEDS ORDERED: Midazolam HCl 2 mg/2 ml Vial ONE (12:24)
[2022-01-28] MEDS ORDERED: Famotidine/PF 20 mg/2ml Vial ONE (12:26)
[2022-01-28] MEDS ORDERED: fentaNYL Citrate/PF 100 MCG/2 ML SYRINGE ONE ×2 (12:36→13:52)
[2022-01-28] MEDS ORDERED: Ondansetron PF 4 MG/2 ML Vial ONE (12:41)
[2022-01-28] MEDS ORDERED: PROPOFOL 200 MG/20 ML VIAL ONE (12:41)
[2022-01-28] MEDS ORDERED: Rocuronium Bromide 10 MG/ML (10ML VIAL) ONE (12:41)
[2022-01-28] MEDS ORDERED: SUGAMMADEX SODIUM 200 MG/2 ML VIAL ONE (13:15)
[2022-01-28] MEDS ORDERED: Promethazine HCl 25 MG/ML VIAL IM PRN (13:39)
[2022-01-28] MEDS ORDERED: Meperidine HCl/PF 25 MG/ML VIAL SLOW IVP PRN (13:39)
[2022-01-28] MEDS ORDERED: HYDROmorphone 2 MG/ML VIAL SLOW IVP PRN (13:39)
[2022-01-28] MEDS ORDERED: Promethazine HCl 25 MG/ML VIAL IVPB PRN (13:39)
[2022-01-28] MEDS ORDERED: Meperidine HCl/PF 25 MG/ML VIAL ONE (13:45)
[2022-01-28] MEDS ORDERED: HYDROmorphone 0.5 MG/0.5 ML SYRINGE ONE ×2 (14:21→14:47)
[2022-01-28] MEDS ORDERED: HYDROcodone/Acetaminophen 5/325 mg Tablet ONE (15:22)
== END 2022-01-28 16:00 | disposition home or self-care (01) ==
LOC: SDC 10:42
PROVIDERS: ATTEND Orthopaedic Surgery
PROC: 0SP Lower Joints, Removal (ICD-10-PCS; principal; 2022-01-28)
DX: S83.104D Unspecified dislocation of right knee, subsequent encounter (principal); K21.9 Gastro-esophageal reflux disease without esophagitis; Z87.891 Personal history of nicotine dependence; Z79.01 Long term (current) use of anticoagulants; Z79.899 Other long term (current) drug therapy; V89.2XXD Person injured in unspecified motor-vehicle accident, traffic, subsequent encounter
CPT/HCPCS: J1170; J2001; J2175; J2250; J2405; J2704; J3490; S0028

== ENCOUNTER 2022-02-14 11:44 | Observation (INO) | payer OTHER ==
[2022-02-14] MEDS ORDERED: FENTANYL 50 MCG/ML 1 ML VIAL ONE ×4 (13:28→17:38)
[2022-02-14] MEDS ORDERED: fentaNYL PF 100 MCG/2 ML SYRINGE ONE (14:10)
[2022-02-14] MEDS ORDERED: CEFAZOLIN 2 GM VIAL ONE (14:21)
[2022-02-14] MEDS ORDERED: Sodium Chloride 0.9% 100 ML ONE (14:21)
[2022-02-14] MEDS ORDERED: NEOSTIGMINE 3 MG/3 ML SYR 3 MG/3 ML SYRINGE ONE (14:36)
[2022-02-14] MEDS ORDERED: Dexamethasone 20 MG/5 ML VIAL ONE (14:36)
[2022-02-14] MEDS ORDERED: Glycopyrrolate 0.2 MG/ML 5 ML SYRINGE ONE (14:36)
[2022-02-14] MEDS ORDERED: Rocuronium Bromide 10 MG/ML (10ML VIAL) ONE (14:36)
[2022-02-14] MEDS ORDERED: PROPOFOL 200 MG/20 ML VIAL ONE (14:36)
[2022-02-14] MEDS ORDERED: PHENYLEPHRINE-NS 100 MCG/ML 10 ML SYRINGE ONE (14:36)
[2022-02-14] MEDS ORDERED: Ondansetron PF 4 MG/2 ML Vial ONE (14:36)
[2022-02-14 14:59] LABS: SARS-CoV-2 NAA Rapid Test Not Detected (NotDetected)
[2022-02-14] MEDS ORDERED: Bupivacaine HCl 0.5%/Epinephrine 1:200,000/PF 30 ml Vial ONE (16:11)
[2022-02-14] MEDS ORDERED: HYDROmorphone 2 MG/ML VIAL ONE (16:40)
[2022-02-14] MEDS ORDERED: Ondansetron PF 4 MG/2 ML Vial IVP PRN ×2 (16:46→18:44)
[2022-02-14] MEDS ORDERED: HYDROcodone/Acetaminophen 10/325 mg Tablet PO PRN (16:46)
[2022-02-14] MEDS ORDERED: Milk Of Magnesia 30 ML UDCUP PO PRN (16:46)
[2022-02-14] MEDS ORDERED: Promethazine HCl 25 MG/ML VIAL IVPB PRN (16:54)
[2022-02-14] MEDS ORDERED: Ondansetron HCl/PF 4 MG/2 ML Vial IVP PRN (16:54)
[2022-02-14] MEDS ORDERED: Promethazine HCl 25 MG/ML VIAL IM PRN ×2 (16:54→18:44)
[2022-02-14] MEDS ORDERED: HYDROmorphone 2 MG/ML VIAL SLOW IVP PRN (16:54)
[2022-02-14] MEDS ORDERED: traMADol HCl 50 MG TAB PO PRN (16:56)
[2022-02-14] MEDS ORDERED: Senokot S 8.6-50 MG TAB PO PRN (16:56)
[2022-02-14] MEDS ORDERED: Albuterol Sulfate 2.5 mg/3 ml Neb NEB PRN (16:56)
[2022-02-14] MEDS ORDERED: LIDOCAINE TOP PRN (16:56)
[2022-02-14] MEDS ORDERED: Sodium Chloride 0.65% Nasal 44 ML BOT EA NARE PRN (16:56)
[2022-02-14] MEDS ORDERED: Communication Order-Pharmacy FS SCH ×2 (17:00→18:45)
[2022-02-14] MEDS ORDERED: Morphine 4 MG/ML VIAL SLOW IVP PRN (17:03)
[2022-02-14] MEDS ORDERED: HYDROmorphone 0.5 MG/0.5 ML SYRINGE ONE ×4 (17:04→19:09)
[2022-02-14] MEDS ORDERED: Ketorolac Tromethamine 30 MG/ML VIAL ONE (18:00)
[2022-02-14] MEDS ORDERED: diphenhydrAMINE 50 MG/ML VIAL IM PRN (18:44)
[2022-02-14] MEDS ORDERED: diphenhydrAMINE 25 MG CAP PO PRN (18:44)
[2022-02-14] MEDS ORDERED: diphenhydrAMINE 50 MG/ML VIAL IVP PRN (18:44)
[2022-02-14] MEDS ORDERED: Zolpidem Tartrate 5 MG TAB PO PRN (18:44)
[2022-02-14] MEDS ORDERED: Naloxone HCl 0.4 mg/ml Vial IV PRN (18:44)
[2022-02-14] MEDS: tiZANidine HCl 4 MG TAB PO SCH (20:50)
[2022-02-14] MEDS: Gabapentin 300 MG CAP PO SCH (20:51)
[2022-02-14] MEDS: CEFAZOLIN 2 GM in Sodium Chloride 0.9% 100 ML IVPB SCH (20:51)
[2022-02-14] MEDS: Aspirin 81 mg Enteric Coated Tablet PO SCH (20:51)
[2022-02-14 21:20] VITALS: BMI 36.9
[2022-02-15] MEDS: tiZANidine HCl 4 MG TAB PO SCH ×4 (00:09→17:57)
[2022-02-15] MEDS: CEFAZOLIN 2 GM in Sodium Chloride 0.9% 100 ML IVPB SCH (05:28)
[2022-02-15 05:51] LABS: #Lymphocytes 3.2 thou/uL (1.20-3.40); #Monocytes 0.9 thou/uL (0.11-0.59); #Neutrophils 9.5 thou/uL (1.40-6.50); %Basophils 0.3 % (0.0-1.0); %Eosinophils 0.1 % (0.0-10.0); %Lymphocytes 23.4 % (21.0-51.0); %Monocytes 6.3 % (0.0-10.0); %Neutrophils 69.8 % (42.0-75.0); Hemoglobin 11.8 g/dL (12.0-16.0); Mean Corpuscular HGB CONC 31.1 g/dL (32.0-36.0); Mean Corpuscular Hemoglobin 30.5 pg (27.0-31.0); Mean Corpuscular Volume 98.1 fl (78.0-98.0); Mean Platelet Volume 6.5 fL (7.4-10.4); Platelet Count 369 10x3/uL (130-400); RBC Distribution Width 13.8 % (11.5-14.5); Red Blood Cell (RBC) Count 3.87 mill/uL (4.20-5.40); White Blood Cell (WBC) Count 13.6 10x3/uL (4.8-10.8)
[2022-02-15] MEDS: Aspirin 81 mg Enteric Coated Tablet PO SCH ×2 (08:54→20:16)
[2022-02-15] MEDS: Gabapentin 300 MG CAP PO SCH ×3 (08:54→20:16)
[2022-02-15] MEDS: HYDROmorphone 10 mg/100 ml CADD IVPB PRN (12:19)
[2022-02-15] MEDS ORDERED: Ketorolac Tromethamine 30 MG/ML VIAL IVP SCH (14:30)
[2022-02-15] MEDS: Acetaminophen 500 MG TAB PO SCH (17:56)
[2022-02-15] MEDS: Ketorolac Tromethamine 30 MG/ML VIAL IVP SCH (20:15)
[2022-02-16] MEDS: tiZANidine HCl 4 MG TAB PO SCH ×4 (00:28→18:00)
[2022-02-16] MEDS: Ketorolac Tromethamine 30 MG/ML VIAL IVP SCH ×4 (00:28→20:21)
[2022-02-16] MEDS: Acetaminophen 500 MG TAB PO SCH ×4 (00:28→18:00)
[2022-02-16] MEDS: Aspirin 81 mg Enteric Coated Tablet PO SCH ×2 (09:13→20:20)
[2022-02-16] MEDS: Gabapentin 300 MG CAP PO SCH ×3 (09:13→20:20)
[2022-02-16] MEDS: HYDROmorphone 10 mg/100 ml CADD IVPB PRN (20:20)
[2022-02-16] MEDS: Acetaminophen 500 MG TAB PO PRN (22:26)
[2022-02-17] MEDS: tiZANidine HCl 4 MG TAB PO SCH ×3 (00:40→11:06)
[2022-02-17] MEDS: Ketorolac Tromethamine 30 MG/ML VIAL IVP SCH ×2 (01:56→08:03)
[2022-02-17] MEDS: Acetaminophen 500 MG TAB PO PRN (04:35)
[2022-02-17] MEDS: Gabapentin 300 MG CAP PO SCH (08:04)
[2022-02-17] MEDS: Aspirin 81 mg Enteric Coated Tablet PO SCH (08:04)
[2022-02-17] MEDS ORDERED: HYDROcodone/Acetaminophen 5/325 mg Tablet PO PRN (08:55)
[2022-02-17] MEDS: HYDROcodone/Acetaminophen 5/325 mg Tablet PO PRN ×2 (09:32→11:06)
[2022-02-17 14:09] VITALS: BP 90/60; TEMP 98.2
== END 2022-02-17 12:56 | disposition home or self-care (01) ==
LOC: SDC 11:44 → SURG A 16:46
PROVIDERS: ADMIT Orthopaedic Surgery; ATTEND Orthopaedic Surgery
PROC: 0PSD04Z Reposition Left Humeral Head with Internal Fixation Device, Open Approach (ICD-10-PCS; principal; 2022-02-14)
DX: S42.292P Other displaced fracture of upper end of left humerus, subsequent encounter for fracture with malunion (principal); K21.9 Gastro-esophageal reflux disease without esophagitis; Z87.891 Personal history of nicotine dependence; Z79.899 Other long term (current) drug therapy; Z20.822 Contact with and (suspected) exposure to COVID-19; V89.2XXD Person injured in unspecified motor-vehicle accident, traffic, subsequent encounter
CPT/HCPCS: 36415; 85025; 96374; 96375; 96376; C1713; G0378; J1100; J1170; J1885; J2405; J2704; J3010; J3490; U0002